=== PATIENT | female | born 2000 | race Two or more races ===

== ENCOUNTER 2022-10-07 19:04 | Emergency (ER) | payer OTHER ==
[~2022-10-07] VITALS: Ht 149.9 cm; Wt 74.0 kg
[2022-10-07 19:11] VITALS: BP 145/84
[2022-10-07 21:37] LABS: BASOPHILS % 0.4 % (0.0-2.0); EOSINOPHILS % 1.4 % (0.0-5.0); HEMATOCRIT. 39.9 % (36.0-48.0); HEMOGLOBIN. 13.3 g/dL (12.0-16.0); LYMPHOCYTES % 27.6 % (20.0-50.0); MEAN CORPUSCULAR HEMOGLOBIN 29.5 pg (28.0-32.0); MEAN CORPUSCULAR VOLUME 88.4 fL (81.0-99.0); MEAN PLATELET VOLUME 9.4 fl (7.4-10.4); MONOCYTES % 4.7 % (2.0-8.0); NEUTROPHILS % 65.9 % (40.0-76.0); PLATELET 359 x1000/uL (130-400); RED BLOOD CELL COUNT 4.51 mill/uL (4.2-5.4)
[2022-10-07 21:43] LABS: CHLORIDE 98 mEq/L (98-107); HCG SCREEN NEGATIVE
[2022-10-08] MEDS ORDERED: ACYC200C31 MT (01:03)
[2022-10-08] MEDS ORDERED: P50 MT ×2 (01:04)
[2022-10-08] MEDS ORDERED: P20 MT (01:07)
== END 2022-10-08 01:52 | disposition home or self-care (01) ==
LOC: ER 21:43
DX: G51.0 Bell's palsy (principal); E11.9 Type 2 diabetes mellitus without complications; Z98.890 Other specified postprocedural states
CPT/HCPCS: 36415; 80053; 84703; 85025; 99284